=== PATIENT | male | born 1970 | race Hispanic/Latino ===

== ENCOUNTER 2017-08-23 13:57 | Emergency (ER) | payer OTHER ==
[2017-08-23 14:13] VITALS: BMI 27.6
[2017-08-23 14:20] VITALS: BP 132/91; PULSE 70; RESP 18; TEMP 98.3; O2SAT 97
--- NOTE | 2017-08-23 14:22 | ED PDOC ---
Arrival/HPI - General Time Seen by Provider: 08/23/17 14:14 Historian: Patient - History of Present Illness Narrative History of Present Illness (Text): 08/23/17 14:18 47 year old male with no significant past medical history and no known allergies , presents to the emergency department complaining of left index finger swelling that began 3 days ago and has worsen. Patient reports he injured his hand when working with a machine and there was oil residue that he wiped off. Patient denies any fever, chills, chest pain, shortness of breath, nausea, vomiting, diarrhea, urinary symptoms, back pain, neck pain, headache, dizziness , or any other complaints/injuries. PMD: Dr. Joshua Time/Duration: Other (3 days ago) Symptom Onset: Gradual Symptom Course: Unchanged Activities at Onset: Light Context: Home Past Medical History - Provider Review Nursing Documentation Reviewed: Yes Family/Social History - Physician Review Nursing Documentation Reviewed: Yes Family/Social History: No Known Family HX Allergies/Home Meds Allergies/Adverse Reactions: Allergies No Known Allergies Allergy (Unverified 08/23/17 14:17) Review of Systems - Physician Review All systems were reviewed & negative as marked: Yes - Review of Systems Constitutional: absent: Fevers, Other (Chills) Respiratory: absent: SOB Cardiovascular: absent: Chest Pain Gastrointestinal: absent: Diarrhea, Nausea, Vomiting Genitourinary Male: absent: Dysuria, Frequency, Hematuria Musculoskeletal: Other (swelling on the left index finger). absent: Back Pain, Neck Pain Neurological: absent: Headache, Dizziness Physical Exam Vital Signs Reviewed: Yes Vital Signs Temp Pulse Resp BP Pulse Ox 08/23/17 14:13 98.3 F 70 18 132/91 H 97 08/23/17 13:57 98.7 F 70 19 130/85 100 Temperature: Afebrile Blood Pressure: Normal Pulse: Regular Respiratory Rate: Normal Appearance: Positive for: Well-Appearing, Non-Toxic, Comfortable Pain Distress: None Mental Status: Positive for: Alert and Oriented X 3 - Systems Exam Head: Present: Atraumatic, Normocephalic Pupils: Present: PERRL Extroacular Muscles: Present: EOMI Conjunctiva: Present: Normal Mouth: Present: Moist Mucous Membranes Neck: Present: Normal Range of Motion Respiratory/Chest: Present: Clear to Auscultation, Good Air Exchange. No: Respiratory Distress, Accessory Muscle Use Cardiovascular: Present: Regular Rate and Rhythm, Normal S1, S2. No: Murmurs Abdomen: Present: Normal Bowel Sounds. No: Tenderness, Distention, Peritoneal Signs Back: Present: Normal Inspection Upper Extremity: Present: Normal Inspection, Other ((+) Swelling, redness/ warmth to the medial tip of finger, (-) No palpable fluctuations). No: Cyanosis , Edema Lower Extremity: Present: Normal Inspection. No: Edema Neurological: Present: GCS=15, CN II-XII Intact, Speech Normal Skin: Present: Warm, Dry, Normal Color. No: Rashes Psychiatric: Present: Alert, Oriented x 3, Normal Insight, Normal Concentration Medical Decision Making ED Course and Treatment: 08/23/17 14:18 Impression: 47 year old male presents complaining of left index finger swelling that began 3 days ago. Dx: Paroncyhia Plan: -- Motrin Tab -- Hand Left 3 Views X-ray -- Reassess and disposition Progress Notes: Paronychia drained by I&D by JULIA Oh. No complications. Patient will take Augmemtin x 7 days;. First dose give here in ED. Patient comfortable with no complaints. Advised to follow up if symptoms worsen or any other concerns. - RAD Interpretation Radiology Orders: 08/23/17 14:17 HAND LEFT 3 VIEWS ROUTINE [RAD] Stat - Medication Orders Current Medication Orders: Discontinued Medications Amoxicillin/Clavulanate Potassium (Augmentin 875 Mg-125 Mg Tab) 1 tab PO STAT STA PRN Reason: Protocol Stop: 08/23/17 15:26 Last Admin: 08/23/17 15:33 Dose: 1 tab Ibuprofen (Motrin Tab) 600 mg PO STAT STA Stop: 08/23/17 14:18 Last Admin: 08/23/17 14:24 Dose: 600 mg [facility] Pain/Vitals Document 08/23/17 14:24 AB (Rec: 08/23/17 14:25 AB [id number]) Pain Reassessment Is This A Pain ReAssessment? Yes Sleep Is patient sleeping during reassessment? No Presence of Pain Presence of Pain Yes Pain Scale Used Pain Scale Used Numeric Location Left, Right or Bilateral Left Pain Location Body Site Finger Description Constant Intensity 3 Scale Used Numeric Pain Behavior Grasping Site Aggravating Factors Changing Position Alleviating Factors Medication Re-Assess: [facility] Pain/Vitals Document 08/23/17 15:24 AB (Rec: 08/23/17 15:33 AB [id number]) Pain Reassessment Is This A Pain ReAssessment? Yes Sleep Is patient sleeping during reassessment? No Presence of Pain Presence of Pain No - Scribe Statement The provider has reviewed the documentation as recorded by the Scribe Chiquita Singleton All medical record entries made by the Scribe were at my direction and personally dictated by me. I have reviewed the chart and agree that the record accurately reflects my personal performance of the history, physical exam, medical decision making, and the department course for this patient. I have also personally directed, reviewed, and agree with the discharge instructions and disposition. Disposition/Present on Arrival - Present on Arrival Any Indicators Present on Arrival: No - Disposition Have Diagnosis and Disposition been Completed?: Yes Diagnosis: Paronychia Disposition: HOME/ ROUTINE Disposition Time: 15:37 Patient Plan: Discharge Condition: IMPROVED Discharge Instructions (ExitCare): Paronychia (ED) Additional Instructions: Mr Miramontes, thank you for letting us take care of you today. Your provider was Dr. Monreal. You were treated for Paronychia. The emergency medical care you received today was directed at your acute symptoms. If you were prescribed any medication, please fill it and take as directed. It may take several days for your symptoms to resolve. Return to the Emergency Department if your symptoms worsen, do not improve, or if you have any other problems. Please contact your doctor or call one of the physicians/clinics you have been referred to that are listed on the Patient Visit Information form that is included in your discharge packet. Bring any paperwork you were given at discharge with you along with any medications you are taking to your follow up visit. Our treatment cannot replace ongoing medical care by a primary care provider (PCP) outside of the emergency department. Thank you for allowing the [facility] team to be part of your care today. If you had an X-Ray or CT scan: A Radiologist will review the ED reading if any change in treatment is needed we will contact you. If you had a blood, urine, or wound culture: It will take several days for the results, if any change in treatment is needed we will contact you. If you had an STI test: It will take 48 hours for the results. Please call after 1 week if you have not heard back. Prescriptions: Amoxicillin/Clavulanate [Augmentin 875 MG-125 MG] 1 tab PO BID #14 tab Referrals: Musa Joshua MD [Primary Care Provider] - Follow up with primary Forms: [employer] (Ukrainian) - Incision & Drainage Of Abscess Anesthesia: Lidocaine 1% Prep Used: Betadine Procedure: Incised W/Scalpel Blade#: (11 blade), Drained Pus (by PA Happiness with no complications. Wrapped with guaze.)
[2017-08-23] MEDS ORDERED: Lidocaine 1% Inj (20ml) ONE (15:01)
[2017-08-23] MEDS ORDERED: Amoxicillin-Clav 875-125 mg Tab PO STA (15:25)
--- NOTE | 2017-08-24 09:41 | RAD ---
PROCEDURE: Right Hand Radiographs. HISTORY: hand pain and 4th finger swelling COMPARISON: None. FINDINGS: BONES: Normal. No fracture. JOINTS: Normal. No osteoarthritic changes. SOFT TISSUES: Normal. OTHER FINDINGS: None. IMPRESSION: Normal right hand radiographs.
== END 2017-08-23 15:37 | disposition home or self-care (01) ==
LOC: ED 13:57
DX: L03.012 Cellulitis of left finger (principal)